=== PATIENT | male | born 1965 | race Caucasian/White ===

== ENCOUNTER 2017-04-27 09:31 | Observation (INO) | payer SELFPAY ==
[2017-04-27] VITALS (9 sets, daily range): BP systolic 106–188; BP diastolic 62–110; PULSE 58–112; RESP 16–20; TEMP 98.1–98.4; O2SAT 97–100
[~2017-04-27] VITALS: Ht 185.4 cm; Wt 72.0 kg
[~2017-04-27 09:31] MED LIST: CHLO10 PO; KPHOSO PO; ZANT150T2 PO
[2017-04-27] MEDS ORDERED: SODIUM CHLORIDE 0.9% FLUSH 10 ML FLUSH IVF PRN (10:15)
--- NOTE | 2017-04-27 10:20 | PD ---
HPI Chief Complaint: General Weakness Time Seen by Provider: 10:19 Travel History International Travel<30 days: No Contact w/Intl Traveler<30days: No Traveled to known affect area: No History of Present Illness HPI 51-year-old male patient with history of no significant past medical issues, comes in with several days' history of dizziness, left-sided chest pressures which she currently rates it as 6 out of 10, shortness of breath, tingling in his left arm and up his left neck. He states it worsens with exertion. He states that for last few days he has been taking it easy because of discomfort. Modifying Factors: None Associated Signs & Symptoms: Dizziness, chest discomfort, shortness of breath Risk Factors: None PFSH Past Medical History Medical History: Denies Significant Hx Past Surgical History Other Surgery: Yes (nose) Social History Alcohol Use: No Tobacco Use: Yes (1 ppd) Substance Use: Yes Allergies-Medications (Allergen,Severity, Reaction): Coded Allergies: No Known Allergies (Unverified Adverse Reaction, Unknown, 04/27/17) Reported Meds & Prescriptions Reported Meds & Active Scripts Active No Active Prescriptions or Reported Medications Review of Systems Except as stated in HPI: all other systems reviewed are Neg Physical Exam Narrative GENERAL: Well-developed middle age white male patient currently in mild distress. Awake and oriented 3. SKIN: Focused skin assessment warm/dry. HEAD: Atraumatic. Normocephalic. EYES: Pupils equal and round. No scleral icterus. No injection or drainage. ENT: No nasal bleeding or discharge. Mucous membranes pink and moist. NECK: Trachea midline. No JVD. CARDIOVASCULAR: Regular rate and rhythm. No murmur appreciated. Pulses are present and equal bilaterally. RESPIRATORY: No accessory muscle use. Clear to auscultation. Breath sounds equal bilaterally. GASTROINTESTINAL: Abdomen soft, non-tender, nondistended. Hepatic and splenic margins not palpable. MUSCULOSKELETAL: No obvious deformities. No clubbing. No cyanosis. No edema. NEUROLOGICAL: Awake and alert. No obvious cranial nerve deficits. Motor grossly within normal limits. Normal speech. PSYCHIATRIC: Appropriate mood and affect; insight and judgment normal. Data Data Last Documented VS Vital Signs Date Time Temp Pulse Resp B/P (MAP) Pulse Ox O2 Delivery O2 Flow Rate FiO2 04/27/17 09:58 90 18 188/107 (134) 100 Room Air 04/27/17 09:35 98.4 Orders Orders Electrocardiogram (04/27/17 10:13) Complete Blood Count With Diff (04/27/17 10:13) Comprehensive Metabolic Panel (04/27/17 10:13) Magnesium (Mg) (04/27/17 10:13) Ckmb (Isoenzyme) Profile (04/27/17 10:13) Troponin I (04/27/17 10:13) Urinalysis - C+S If Indicated (04/27/17 10:13) Chest, Single Ap (04/27/17 10:13) Ct Brain W/O Iv Contrast(Rout) (04/27/17 10:13) Ecg Monitoring (04/27/17 10:13) Iv Access Insert/Monitor (04/27/17 10:13) Oximetry (04/27/17 10:13) Sodium Chloride 0.9% Flush (Ns Flush) (04/27/17 10:15) Aspirin (Aspirin) (04/27/17 12:30) Nitroglycerin 2% Oint (Nitroglycerin 2% (04/27/17 14:00) Admit Order (Ed Use Only) (04/27/17 12:19) Labs Laboratory Tests Test 04/27/17 10:15 White Blood Count 7.4 TH/MM3 Red Blood Count 5.30 MIL/MM3 Hemoglobin 17.2 GM/DL Hematocrit 50.0 % Mean Corpuscular Volume 94.3 FL Mean Corpuscular Hemoglobin 32.4 PG Mean Corpuscular Hemoglobin Concent 34.4 % Red Cell Distribution Width 13.9 % Platelet Count 244 TH/MM3 Mean Platelet Volume 8.6 FL Neutrophils (%) (Auto) 71.2 % Lymphocytes (%) (Auto) 21.9 % Monocytes (%) (Auto) 5.3 % Eosinophils (%) (Auto) 0.9 % Basophils (%) (Auto) 0.7 % Neutrophils # (Auto) 5.2 TH/MM3 Lymphocytes # (Auto) 1.6 TH/MM3 Monocytes # (Auto) 0.4 TH/MM3 Eosinophils # (Auto) 0.1 TH/MM3 Basophils # (Auto) 0.1 TH/MM3 CBC Comment DIFF FINAL Differential Comment Blood Urea Nitrogen 11 MG/DL Creatinine 1.15 MG/DL Random Glucose 96 MG/DL Total Protein 8.2 GM/DL Albumin 4.2 GM/DL Calcium Level 9.6 MG/DL Magnesium Level 2.3 MG/DL Alkaline Phosphatase 102 U/L Aspartate Amino Transf (AST/SGOT) 11 U/L Alanine Aminotransferase (ALT/SGPT) 14 U/L Total Bilirubin 0.4 MG/DL Sodium Level 136 MEQ/L Potassium Level 4.4 MEQ/L Chloride Level 102 MEQ/L Carbon Dioxide Level 26.4 MEQ/L Anion Gap 8 MEQ/L Estimat Glomerular Filtration Rate 67 ML/MIN Total Creatine Kinase 77 U/L Troponin I LESS THAN 0.02 NG/ML MDM Medical Decision Making Medical Screen Exam Complete: Yes Emergency Medical Condition: Yes Medical Record Reviewed: Yes Interpretation(s) EKG shows NSR, no ST elevation or depression, and no arrhythmias. No significant T-wave inversions. Laboratory Tests Test 04/27/17 10:15 Hemoglobin 17.2 GM/DL (13.0-17.0) Neutrophils (%) (Auto) 71.2 % (16.0-70.0) Aspartate Amino Transf (AST/SGOT) 11 U/L (15-37) Estimat Glomerular Filtration Rate 67 ML/MIN (>89) Troponin I LESS THAN 0.02 NG/ML Last [address] 04/27/17 1013 Signed Impressions: Service Date/Time: Thursday, April 27, 2017 11:43 - CONCLUSION: Normal examination. Arsalan Umaña MD Chest X-Ray 04/27/17 1013 Signed Impressions: Service Date/Time: Thursday, April 27, 2017 10:25 - CONCLUSION: Hyperinflation. Lungs are otherwise clear. Neptali Baugh MD Differential Diagnosis Dizziness, chest discomfort, shortness of breath, left arm paresthesias: Anxiety attack versus metabolic issues versus hypertensive urgency versus TIA/ CVA versus ACS Narrative Course EKG, lab work, cardiac enzymes and chest x-ray were unremarkable. CAT scan was done to rule out acute intracranial processes, did not show any signs of acute processes. He has no focal neurological deficits and I do not think that this is a CVA. However, I am concerned about chest discomfort and my plan would be to admit the patient to chest pain center for further evaluation. Diagnosis Primary Impression: Chest pain Admitting Information Admitting Physician Requests: Admit Scripts No Active Prescriptions or Reported Meds Ann Jolley MD Apr 27, 2017 10:20
[2017-04-27 10:36] LABS: AUTOMATED NEUTROPHIL # 5.2 TH/MM3 (1.8-7.7); BASOPHIL # 0.1 TH/MM3 (0-0.2); BASOPHIL % 0.7 % (0.0-2.0); EOSINOPHIL # 0.1 TH/MM3 (0-0.4); EOSINOPHIL % 0.9 % (0.0-4.0); HEMO FLAGS DIFF FINAL; LYMPH % 21.9 % (9.0-44.0); LYMPHOCYTE # 1.6 TH/MM3 (1.0-4.8); MEAN CELL VOLUME 94.3 FL (80.0-100.0); MEAN CORPUSCULAR HEMOGLOBIN 32.4 PG (27.0-34.0); MEAN CORPUSCULAR HGB CONC 34.4 % (32.0-36.0); MONO % 5.3 % (0.0-8.0); NEUT % 71.2 % (16.0-70.0); PLATELET COUNT 244 TH/MM3 (150-450); RED CELL DISTRIBUTION WIDTH 13.9 % (11.6-17.2); WHITE BLOOD COUNT 7.4 TH/MM3 (4.0-11.0)
--- NOTE | 2017-04-27 11:02 | RADRPT ---
EXAM DATE/TIME: 04/27/2017 10:25 [facility] COMPARISON: No previous studies available for comparison. INDICATIONS : Shortness of breath. MEDICAL HISTORY : None. SURGICAL HISTORY : None. ENCOUNTER: Initial ACUITY: 3 days PAIN SCORE: 0/10 LOCATION: Bilateral chest FINDINGS: A single view of the chest demonstrates the lungs to be symmetrically, hyper aerated without evidence of mass, infiltrate or effusion. Well-circumscribed nodular density projecting over the anterior ri ght sixth rib is characteristic of a normal nipple shadow. The cardiomediastinal contours are unremar kable. Osseous structures are intact with a extra scoliosis of the thoracolumbar spine and associate d mild degenerative changes. CONCLUSION: Hyperinflation. Lungs are otherwise clear. Neptali Baugh MD on April 27, 2017 at 10:58 Board Certified Radiologist. This report was verified electronically.
[2017-04-27 11:15] LABS: ALT (GPT) 14 U/L (12-78); ANION GAP 8 MEQ/L (5-15); AST (GOT) 11 U/L (15-37); BICARBONATE 26.4 MEQ/L (21.0-32.0); BLOOD UREA NITROGEN 11 MG/DL (7-18); CHLORIDE 102 MEQ/L (98-107); GLOMERULAR FILTRATION RATE 67 ML/MIN (>89); MAGNESIUM 2.3 MG/DL (1.5-2.5); POTASSIUM 4.4 MEQ/L (3.5-5.1); SODIUM (NA) 136 MEQ/L (136-145)
[2017-04-27 11:20] LABS: ALKALINE PHOSPHATASE 102 U/L (45-117); TOTAL BILIRUBIN ADULT 0.4 MG/DL (0.2-1.0)
[2017-04-27 11:21] LABS: CREATINE KINASE 77 U/L (39-308)
--- NOTE | 2017-04-27 12:09 | RADRPT ---
EXAM DATE/TIME: 04/27/2017 11:43 [facility] COMPARISON: No previous studies available for comparison. INDICATIONS : Weakness and lightheaded for 6 days RADIATION DOSE: 56.35 CTDIvol (mGy) MEDICAL HISTORY : None SURGICAL HISTORY : None. ENCOUNTER: Initial ACUITY: 4 - 6 days PAIN SCALE: 0/10 LOCATION: cranial TECHNIQUE: Multiple contiguous axial images were obtained of the head. Using automated exposure control and adj ustment of the mA and/or kV according to patient size, radiation dose was kept as low as reasonably a chievable to obtain optimal diagnostic quality images. DICOM format image data is available electro nically for review and comparison. FINDINGS: CEREBRUM: The ventricles are normal for age. No evidence of midline shift, mass lesion, hemorrhage or acute in farction. No extra-axial fluid collections are seen. POSTERIOR FOSSA: The cerebellum and brainstem are intact. The 4th ventricle is midline. The cerebellopontine angle i s unremarkable. EXTRACRANIAL: The visualized portion of the orbits is intact. SKULL: The calvaria is intact. No evidence of skull fracture. CONCLUSION: Normal examination. Arsalan Umaña MD on April 27, 2017 at 12:07 Board Certified Radiologist. This report was verified electronically.
[2017-04-27] MEDS ORDERED: ASPIRIN 325 MG TAB PO ONE (12:30)
[2017-04-27 12:50] LABS: BLOOD, URINE NEG (NEG); GLUCOSE,URINE NEG (NEG); KETONE, URINE NEG (NEG); NITRITE,URINE NEG (NEG); URINE COLOR LIGHT-YELLOW (YELLW/STRAW)
[2017-04-27 12:58] LABS: COMMENT (UR) CULT NOT INDICATED; CULTURE IF INDICATED CULT NOT INDICATED
[2017-04-27] MEDS ORDERED: ACETAMINOPHEN/HYDROcodone 325 MG/7.5 MG TAB PO PRN (13:00)
[2017-04-27] MEDS ORDERED: ALPRAZolam 0.25 MG TAB PO PRN (13:00)
[2017-04-27] MEDS ORDERED: RESP: ALBUTEROL 2.5 MG/IPRATROPIUM 0.5 MG NEB (PRN) INH (13:00)
[2017-04-27] MEDS ORDERED: cloNIDine HCL 0.1 MG TAB PO PRN (13:00)
[2017-04-27] MEDS ORDERED: ONDANSETRON HCL 4 MG/2 ML VIAL IV PUSH PRN (13:00)
[2017-04-27] MEDS ORDERED: ACETAMINOPHEN 500 MG CPLT PO PRN (13:00)
--- NOTE | 2017-04-27 13:36 | HHI.HP ---
HPI Primary Care Physician No Primary Care Physician Chief Complaint Chest pain History of Present Illness This is a 51-year-old male that presents to ED with a complaint of chest pain. Patient states symptoms began . They've been present constantly for 6 days. He points to left upper chest show where the discomfort is present. Times will radiate down left arm. The discomfort has been constant however it waxes and wanes. It does seem to be worsened with activity which for the most part is at work. 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 Patient also has been getting lightheaded while he was doing work. This is also the same time that the discomfort in his chest has worsening. Denies shortness of breath, nausea, or diaphoresis with the symptoms. States he's never had his heart evaluated before. Patient does smoke cigarettes. Denies history of hypertension and hyperlipidemia. There is family history of CAD with both parents needing a bypass. Review of Systems General: Patient denies fevers, chills recent, and recent travel HEENT: Patient denies headache, sore throat, difficulty swallowing. Cardiovascular: Has the chest discomfort as mentioned above. Denies sensation of heart beating rapidly or irregularly. No syncope. Denies diaphoresis. Respiratory: Denies shortness of breath or inspirational chest discomfort. Denies coughing wheezing or hemoptysis. GI: Patient denies nausea, vomiting, diarrhea, abdominal pain, bloody stools. Musculoskeletal: Patient denies joint pain or edema. Denies calf pain or edema. Neurovascular: Patient denies numbness, tingling, weakness in extremities. Denies headache. Endocrine: Denies polyuria and polydipsia. Hematologic: Denies easy bruising. Skin: Denies rash or itching. Past Family Social History Allergies: Coded Allergies: No Known Allergies (Unverified Adverse Reaction, Unknown, 04/27/17) Past Medical History Tobacco abuse. 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 States he's had no alcohol for 2 years. Denies hypertension, hyperlipidemia, diabetes, and known CAD. Past Surgical History Left ankle. Nasal surgery secondary to fracture. Reported Medications Reported Meds & Active Scripts Active No Active Prescriptions or Reported Medications Active Ordered Medications Current Medications Medications (Trade) Dose Ordered Sig/Efrain Route Start Time Stop Time Status Last Admin (NS Flush) 2 ml UNSCH PRN IVF 04/27/17 10:15 (Nitroglycerin 2% Oint) 1 inch Q8HR TOPICAL 04/27/17 14:00 (Tylenol) 500 mg Q4H PRN PO 04/27/17 13:00 UNV ([place] 7.5-325 Mg) 1 tab Q4H PRN PO 04/27/17 13:00 UNV (Zofran Inj) 4 mg Q6H PRN IV PUSH 04/27/17 13:00 UNV (Protonix) 40 mg DAILY PO 04/27/17 13:00 UNV (Aspirin) 325 mg DAILY PO 04/28/17 09:00 UNV (Xanax) 0.25 mg Q8H PRN PO 04/27/17 13:00 UNV (Duoneb Neb) 1 ampule Q4HR NEB PRN INH 04/27/17 13:00 UNV (Catapres) 0.1 mg Q4H PRN PO 04/27/17 13:00 UNV (Prinivil) 10 mg DAILY PO 04/27/17 13:00 UNV Family History His mother needed a bypass at age 74. His father needed a bypass at age 56. Social History Smokes one pack of cigarettes daily for 35 years. Occasional marijuana use. States he is not alcoholic but has been sober for 2 years. Physical Exam Vital Signs Vital Signs Date Time Temp Pulse Resp B/P (MAP) Pulse Ox O2 Delivery O2 Flow Rate FiO2 04/27/17 13:01 100 21 04/27/17 12:35 82 18 161/110 (127) 98 Room Air 04/27/17 09:58 90 18 188/107 (134) 100 Room Air 04/27/17 09:35 98.4 112 16 163/105 (124) 99 Physical Exam GENERAL: This is a well-nourished, well-developed patient, in no apparent distress. Patient speaks in clear complete sentences. Patient is pleasant. HEENT: Head is atraumatic and normocephalic. Neck is supple without lymphadenopathy and trachea is midline. No JVD or carotid bruits. CARDIOVASCULAR: Regular rate and rhythm without murmurs, gallops, or rubs. RESPIRATORY: Clear to auscultation. Breath sounds equal bilaterally. No wheezes , rales, or rhonchi. Chest wall is nontender. No use of accessory muscles. GASTROINTESTINAL: Abdomen is nontender, nondistended. Abdomen soft. No obvious pulsatile mass or bruit. No CVA tenderness. Strong femoral pulses bilaterally. Normal bowel sounds in all quadrants. MUSCULOSKELETAL: Patient is moving upper and lower extremities freely. No calf tenderness or edema, no Homans sign. Strong pulses in upper and lower extremities. NEUROLOGICAL: Patient is alert and oriented. Cranial nerves 2-12 are grossly intact. No focal deficits and speech is clear. SKIN: No rash and turgor is normal. Laboratory Laboratory Tests Test 04/27/17 10:15 04/27/17 10:40 White Blood Count 7.4 Red Blood Count 5.30 Hemoglobin 17.2 Hematocrit 50.0 Mean Corpuscular Volume 94.3 Mean Corpuscular Hemoglobin 32.4 Mean Corpuscular Hemoglobin Concent 34.4 Red Cell Distribution Width 13.9 Platelet Count 244 Mean Platelet Volume 8.6 Neutrophils (%) (Auto) 71.2 Lymphocytes (%) (Auto) 21.9 Monocytes (%) (Auto) 5.3 Eosinophils (%) (Auto) 0.9 Basophils (%) (Auto) 0.7 Neutrophils # (Auto) 5.2 Lymphocytes # (Auto) 1.6 Monocytes # (Auto) 0.4 Eosinophils # (Auto) 0.1 Basophils # (Auto) 0.1 CBC Comment DIFF FINAL Differential Comment Blood Urea Nitrogen 11 Creatinine 1.15 Random Glucose 96 Total Protein 8.2 Albumin 4.2 Calcium Level 9.6 Magnesium Level 2.3 Alkaline Phosphatase 102 Aspartate Amino Transf (AST/SGOT) 11 Alanine Aminotransferase (ALT/SGPT) 14 Total Bilirubin 0.4 Sodium Level 136 Potassium Level 4.4 Chloride Level 102 Carbon Dioxide Level 26.4 Anion Gap 8 Estimat Glomerular Filtration Rate 67 Total Creatine Kinase 77 Troponin I LESS THAN 0.02 Urine Color LIGHT-YELLOW Urine Turbidity CLEAR Urine pH 7.0 Urine Specific [place] 1.006 Urine Protein NEG Urine Glucose (UA) NEG Urine Ketones NEG Urine Occult Blood NEG Urine Nitrite NEG Urine Bilirubin NEG Urine Urobilinogen LESS THAN 2.0 Urine Leukocyte Esterase NEG Urine RBC LESS THAN 1 Urine WBC LESS THAN 1 Microscopic Urinalysis Comment CULT NOT INDICATED Result Diagram: 04/27/17 1015 04/27/17 1015 Imaging Last [address] 04/27/17 1013 Signed Impressions: Service Date/Time: Thursday, April 27, 2017 11:43 - CONCLUSION: Normal examination. Arsalan Umaña MD Chest X-Ray 04/27/17 1013 Signed Impressions: Service Date/Time: Thursday, April 27, 2017 10:25 - CONCLUSION: Hyperinflation. Lungs are otherwise clear. Neptali Baugh MD Course Initial EKG is sinus rhythm rate of [address] segment depressions or elevations. Caprini VTE Risk Assessment Caprini VTE Risk Assessment: No/Low Risk (score <= 1) Caprini Risk Assessment Model Point Value = 1 Point Value = 2 Point Value = 3 Point Value = 5 Age 41-60 Minor surgery BMI > 25 kg/m2 Swollen legs Varicose veins or History of unexplained or recurrent spontaneous Oral contraceptives or hormone replacement Sepsis (< 1 month) Serious lung disease, including pneumonia (< 1 month) Abnormal pulmonary function Acute myocardial infarction Congestive heart failure (< 1 month) History of inflammatory bowel disease Medical patient at bed rest Age 61-74 Arthroscopic surgery Major open surgery (> 45 min) Laparoscopic surgery (> 45 min) Malignancy Confined to bed (> 72 hours) Immobilizing plaster cast Central venous access Age >= 75 History of VTE Family history of VTE Factor V Leiden Prothrombin [id number] Lupus anticoagulant Anticardiolipin antibodies Elevated serum homocysteine Heparin-induced thrombocytopenia Other congenital or acquired thrombophilia Stroke (< 1 month) Elective arthroplasty Hip, pelvis, or leg fracture Acute spinal cord injury (< 1 month) Prophylaxis Regimen Total Risk Factor Score Risk Level Prophylaxis Regimen 0-1 Low Early ambulation 2 Moderate Order ONE of the following: *Sequential Compression Device (SCD) *Heparin 5000 units SQ BID 3-4 Higher Order ONE of the following medications: *Heparin 5000 units SQ TID *Enoxaparin/Lovenox 40 mg SQ daily (WT < 150 kg, CrCl > 30 mL/min) *Enoxaparin/Lovenox 30 mg SQ daily (WT < 150 kg, CrCl > 10-29 mL/min) *Enoxaparin/Lovenox 30 mg SQ BID (WT < 150 kg, CrCl > 30 mL/min) AND/OR *Sequential Compression Device (SCD) 5 or more Highest Order ONE of the following medications: *Heparin 5000 units SQ TID (Preferred with Epidurals) *Enoxaparin/Lovenox 40 mg SQ daily (WT < 150 kg, CrCl > 30 mL/min) *Enoxaparin/Lovenox 30 mg SQ daily (WT < 150 kg, CrCl > 10-29 mL/min) *Enoxaparin/Lovenox 30 mg SQ BID (WT < 150 kg, CrCl > 30 mL/min) AND *Sequential Compression Device (SCD) Assessment and Plan Assessment and Plan * Chest pain: Patient will continue to have serial cardiac enzymes and EKGs for ruling out purposes. He will be seen by Dr. Darrell Mott of cardiology in the chest pain center and at that time further plan will be determined. Likely stress testing in the morning and patient believes he would be walk on a treadmill. If his workup is nonischemic U be discharged home with instructions to follow-up with PCP and to quit smoking. His blood pressure was elevated. We 'll give a dose lisinopril and continue to monitor. * Tobacco Abuse: Patient has been counseled on importance of smoking cessation. Patient is stable at this time. He is agreeable to this plan. Patient return to ED for interval issues. Vadim Perez Apr 27, 2017 13:36
[2017-04-27] MEDS: LISINOPRIL 10 MG TAB PO SCH (13:52)
[2017-04-27] MEDS: PANTOPRAZOLE SOD 40 MG DELAYED RELEASE TAB PO SCH (13:52)
[2017-04-27] MEDS ORDERED: NITROGLYCERIN 2% OINT 1 GM PACKET TOPICAL SCH (14:00)
[2017-04-27 14:59] LABS: CREATINE KINASE 60 U/L (39-308)
[2017-04-27] MEDS ORDERED: SODIUM CHLOR 0.9% 1000 ML INJ 1,000 ML IV SCH (15:37)
--- NOTE | 2017-04-27 16:08 | EKG ---
Date Performed: 04/27/2017 Time Performed: 13:42:19 PTAGE: 51 years EKG: Sinus rhythm NORMAL ECG INTERPRETATION BASED ON A DEFAULT AGE OF 40 YEARS PREVIOUS TRACING : 04/27/2017 11.24 Since previous tracing, no significant change noted DOCTOR: Darrell Mott Interpretating Date/Time 04/27/2017 16:06:25
[2017-04-27 17:21] LABS: CREATINE KINASE 54 U/L (39-308)
[2017-04-28 00:08] VITALS: BP 102/61; PULSE 73; RESP 18; TEMP 97.9; O2SAT 98
[2017-04-28 04:33] VITALS: PULSE 67
[2017-04-28 07:15] VITALS: BP 102/66; PULSE 70; PULSE 76; RESP 16; TEMP 97.7; O2SAT 97
[2017-04-28] MEDS: LISINOPRIL 10 MG TAB PO SCH (08:43)
[2017-04-28] MEDS: PANTOPRAZOLE SOD 40 MG DELAYED RELEASE TAB PO SCH (08:43)
[2017-04-28] MEDS ORDERED: ASPIRIN 325 MG TAB PO SCH (09:00)
--- NOTE | 2017-04-28 10:23 | PD.CARD.PN ---
Subjective Subjective Remarks No complaints overnight. Objective Medications Current Medications Medications (Trade) Dose Ordered Sig/Efrain Route Start Time Stop Time Status Last Admin (NS Flush) 2 ml UNSCH PRN IVF 04/27/17 10:15 04/28/17 08:48 (Tylenol) 500 mg Q4H PRN PO 04/27/17 13:00 ([place] 7.5-325 Mg) 1 tab Q4H PRN PO 04/27/17 13:00 (Zofran Inj) 4 mg Q6H PRN IV PUSH 04/27/17 13:00 (Protonix) 40 mg DAILY PO 04/27/17 13:00 04/28/17 08:43 (Aspirin) 325 mg DAILY PO 04/28/17 09:00 04/28/17 08:43 (Xanax) 0.25 mg Q8H PRN PO 04/27/17 13:00 (Duoneb Neb) 1 ampule Q4HR NEB PRN INH 04/27/17 13:00 (Catapres) 0.1 mg Q4H PRN PO 04/27/17 13:00 (Prinivil) 10 mg DAILY PO 04/27/17 14:00 04/28/17 08:43 Vital Signs / I&O Vital Signs Date Time Temp Pulse Resp B/P (MAP) Pulse Ox O2 Delivery O2 Flow Rate FiO2 04/28/17 07:15 97.7 70 16 102/66 (78) 97 04/28/17 04:35 21 04/28/17 04:33 67 04/28/17 00:08 97.9 73 18 102/61 (75) 98 04/27/17 23:53 58 04/27/17 20:51 98.1 72 20 106/62 (77) 97 04/27/17 20:05 87 04/27/17 14:47 98.1 73 18 128/78 (95) 97 04/27/17 14:09 04/27/17 13:53 77 20 133/89 (104) 99 Room Air 04/27/17 13:01 100 21 04/27/17 12:35 82 18 161/110 (127) 98 Room Air Physical Exam GENERAL: Alert WN, WD, NAD, male who appears older than stated age. HEAD: NC, AT CV: RRR, without murmur, rub, gallop, no JVD, S1-S2 no S3-S4. Chest wall pain not reproduced with palpation. RESP: Clear lungs throughout bilateral, no crackles, wheeze, rhonchi, symmetrical chest rise, nonlabored, able to speak in full sentences MS: Normal tone 4 extremities, no obvious deformities, full range of motion NEURO: CN II through CN XII grossly intact, motor strength 5/5, left lateral neck pain not reproduced with palpation. PSYCH: A+O 3 Laboratory Laboratory Tests Test 04/27/17 10:15 04/27/17 10:40 04/27/17 13:40 04/27/17 16:22 White Blood Count 7.4 TH/MM3 Red Blood Count 5.30 MIL/MM3 Hemoglobin 17.2 GM/DL Hematocrit 50.0 % Mean Corpuscular Volume 94.3 FL Mean Corpuscular Hemoglobin 32.4 PG Mean Corpuscular Hemoglobin Concent 34.4 % Red Cell Distribution Width 13.9 % Platelet Count 244 TH/MM3 Mean Platelet Volume 8.6 FL Neutrophils (%) (Auto) 71.2 % Lymphocytes (%) (Auto) 21.9 % Monocytes (%) (Auto) 5.3 % Eosinophils (%) (Auto) 0.9 % Basophils (%) (Auto) 0.7 % Neutrophils # (Auto) 5.2 TH/MM3 Lymphocytes # (Auto) 1.6 TH/MM3 Monocytes # (Auto) 0.4 TH/MM3 Eosinophils # (Auto) 0.1 TH/MM3 Basophils # (Auto) 0.1 TH/MM3 CBC Comment DIFF FINAL Differential Comment Blood Urea Nitrogen 11 MG/DL Creatinine 1.15 MG/DL Random Glucose 96 MG/DL Total Protein 8.2 GM/DL Albumin 4.2 GM/DL Calcium Level 9.6 MG/DL Magnesium Level 2.3 MG/DL Alkaline Phosphatase 102 U/L Aspartate Amino Transf (AST/SGOT) 11 U/L Alanine Aminotransferase (ALT/SGPT) 14 U/L Total Bilirubin 0.4 MG/DL Sodium Level 136 MEQ/L Potassium Level 4.4 MEQ/L Chloride Level 102 MEQ/L Carbon Dioxide Level 26.4 MEQ/L Anion Gap 8 MEQ/L Estimat Glomerular Filtration Rate 67 ML/MIN Total Creatine Kinase 77 U/L 60 U/L 54 U/L Troponin I LESS THAN 0.02 NG/ML LESS THAN 0.02 NG/ML LESS THAN 0.02 NG/ML Urine Color LIGHT-YELLOW Urine Turbidity CLEAR Urine pH 7.0 Urine Specific [place] 1.006 Urine Protein NEG mg/dL Urine Glucose (UA) NEG mg/dL Urine Ketones NEG mg/dL Urine Occult Blood NEG Urine Nitrite NEG Urine Bilirubin NEG Urine Urobilinogen LESS THAN 2.0 MG/DL Urine Leukocyte Esterase NEG Urine RBC LESS THAN 1 /hpf Urine WBC LESS THAN 1 /hpf Microscopic Urinalysis Comment CULT NOT INDICATED Urine Opiates Screen NEG Urine Barbiturates Screen NEG Urine Amphetamines Screen NEG Urine Benzodiazepines Screen NEG Urine Cocaine Screen NEG Urine Cannabinoids Screen POS Lipase 110 U/L Imaging Last [address] 04/27/17 1013 Signed Impressions: Service Date/Time: Thursday, April 27, 2017 11:43 - CONCLUSION: Normal examination. Arsalan Umaña MD Chest X-Ray 04/27/17 1013 Signed Impressions: Service Date/Time: Thursday, April 27, 2017 10:25 - CONCLUSION: Hyperinflation. Lungs are otherwise clear. Neptali Baugh MD Assessment and Plan Assessment and Plan #1 Atypical chest pain-proceeded with exercise stress testing. Dr. Krueger reviewed results and agrees cardiac exercise testing unremarkable with no indication of ischemia. Upon entering room to notify patient of cardiac testing finding, patient immediately began yelling and became angry stating "no one is listening to me and I do not want to be discharged, I am afraid I will have a stroke." Patient continued to raise voice and I was unable to calm him down despite multiple attempts. Made him aware we are here to help him, therefore would like to ask further questions to give idea of why he is having left side neck pain and to discuss concerns over discharge. All multiple communication attempts failed. Continued to raise voice and uncooperative further discussing his current symptoms. Kept repeating "no one listening and no one has done anything for me." Every attempt to discuss testing completed disregarding by patient. Unable to give any reassurance to patient at this time. Patient made aware yelling and being uncooperative is not tolerated, therefore will give him time to calm down before any further discussion continues. Will return to speak with patient with my current attending physician, after patient calms down. #2 Tobacco use-strongly encouraged and stressed importance of tobacco cessation. Instructed to quit smoking. Dori Keyes Apr 28, 2017 10:23
--- NOTE | 2017-04-28 10:33 | EKG ---
Date Performed: 04/27/2017 Time Performed: 11:24:39 PTAGE: 51 years EKG: Sinus rhythm NORMAL ECG PREVIOUS TRACING : 01/03/2015 19.03 Compared to prior tracing no significant change DOCTOR: Kelli Najera Interpretating Date/Time 04/28/2017 10:33:13
--- NOTE | 2017-04-28 10:52 | TR ---
Date Performed: 04/28/2017 Time Performed: 09:20:06 DOCTOR: Maikol Krueger DRUG LIST: CLINICAL HISTORY: REASON FOR TEST: REASON FOR ENDING: OBSERVATION: CONCLUSION: Ramesh protocol completed. Stopped sec to exceeding target heart rate and difficulty walking due to past left ankle fracture. Maximum ZE=539 Target HR Achieved=93.0% Maximum TV=138/74 To hasmukh Exercise Time=3:42. No reprod chest pain. No st t segment changes to sugg ischemia. No ectopy. Go od exercise tolerance, exercise limited due to left ankle. Normal bp response. Recovery quick and unr emarkable. COMMENTS: Conclusion: Normal treadmill exercise. No evidence of ischemia.
[2017-04-28] MEDS ORDERED: KETOROLAC TROMETHAMINE 30 MG/ML (IVP) VIAL IV PUSH ONE (11:00)
[2017-04-28 12:17] VITALS: BP 103/71; PULSE 81; RESP 18; TEMP 97.8; O2SAT 98
[2017-04-28] MEDS ORDERED: MEDR4PAK PO (13:47)
--- NOTE | 2017-04-28 13:49 | EKG ---
Date Performed: 04/27/2017 Time Performed: 16:30:58 PTAGE: 51 years EKG: Sinus rhythm NORMAL ECG PREVIOUS TRACING : 04/27/2017 13.42 Since previous tracing, no significant change noted DOCTOR: Maikol Krueger Interpretating Date/Time 04/28/2017 13:47:59
[2017-04-28 15:12] VITALS: BP 111/76; PULSE 99; RESP 16; TEMP 97.8; O2SAT 98
--- NOTE | 2017-04-28 15:35 | HHI.DCPOC ---
Discharge Care Plan Diagnosis: (1) Tobacco abuse (2) Atypical chest pain (3) Radiculopathy affecting upper extremity Goals to Promote Your Health * To prevent worsening of your condition and complications * To maintain your health at the optimal level Directions to Meet Your Goals Take your medications as prescribed Follow your dietary instruction Follow activity as directed Keep your appointments as scheduled Take your immunizations and boosters as scheduled If your symptoms worsen call your PCP, if no PCP go to Urgent Care Center or Emergency Room Smoking is Dangerous to Your Health. Avoid second hand smoke Call the 24-hour hour crisis hotline for domestic abuse at Dori Keyes Apr 28, 2017 15:35
--- NOTE | 2017-04-28 15:50 | RADRPT ---
EXAM DATE/TIME: 04/28/2017 13:39 [facility] COMPARISON: No previous studies available for comparison. INDICATIONS : Left side neck pain. MEDICAL HISTORY : None. SURGICAL HISTORY : None. ENCOUNTER: Subsequent ACUITY: 1 week PAIN SCORE: 6/10 LOCATION: Left neck FINDINGS: Two projection examination was performed. There is normal alignment and curvature of the vertebral b odies down to the level of C7. No evidence of fracture or subluxation. Vertebral body height is av ntained. The disc spaces are maintained. The prevertebral soft tissues are of normal thickness. Th e atlanto-axial articulation is intact. Dense atherosclerotic calcification in the expected location of the carotid bifurcations bilaterally. CONCLUSION: 1. No acute osseous injury or significant degenerative/listhesis. 2. Dense atherosclerotic calcification in the expected location of the carotid bifurcations bilateral ly. Neptali Baugh MD on April 28, 2017 at 15:47 Board Certified Radiologist. This report was verified electronically.
--- NOTE | 2017-04-29 07:21 | HHI.DS ---
Discharge Summary Admission Date Apr 27, 2017 at 12:21 Discharge Date: Apr 28, 2017 Admitting Diagnosis chest pain Procedures Last Impressions Cervical Spine X-Ray 04/28/17 0000 Signed Impressions: Service Date/Time: April 13:39 - CONCLUSION: 1. No acute osseous injury or significant degenerative/listhesis. 2. Dense atherosclerotic calcification in the expected location of the carotid bifurcations bilaterally. Neptali Baugh MD Head CT 04/27/17 1013 Signed Impressions: Service Date/Time: Thursday, April 27, 2017 11:43 - CONCLUSION: Normal examination. Arsalan Umaña MD Chest X-Ray 04/27/17 1013 Signed Impressions: Service Date/Time: Thursday, April 27, 2017 10:25 - CONCLUSION: Hyperinflation. Lungs are otherwise clear. Neptali Baugh MD Brief History 51-year-old male presented emergency room for constant left anterior chest pain with radiation to left-sided neck, left shoulder, and left arm. Admitted to chest pain center. Ruled out with 3 sets of EKGs and cardiac enzymes. Completed an chemical stress test. Upon discharge patient presents concerned over discharge due to constant pain. Cervical x-ray ordered and completed. Cervical xray unremarkable. Bilateral carotid calcifications at bifurcation. Discussed follow up with PCP. Information give at discharged to follow up with [facility]. CBC/BMP: 04/27/17 1015 04/27/17 1015 Significant Findings Laboratory Tests Test 04/27/17 10:15 04/27/17 10:40 04/27/17 13:40 04/27/17 16:22 Hemoglobin 17.2 GM/DL (13.0-17.0) Neutrophils (%) (Auto) 71.2 % (16.0-70.0) Aspartate Amino Transf (AST/SGOT) 11 U/L (15-37) Estimat Glomerular Filtration Rate 67 ML/MIN (>89) Troponin I LESS THAN 0.02 NG/ML LESS THAN 0.02 NG/ML LESS THAN 0.02 NG/ML Urine Cannabinoids Screen POS (NEG) Pt Condition on Discharge: Good Discharge Disposition: Discharge Home Discharge Instructions DIET: Follow Instructions for: Heart Healthy Diet Activities you can perform: Regular-No Restrictions Dori Keyes Apr 29, 2017 07:21
== END 2017-04-28 18:31 | disposition home or self-care (01) ==
LOC: NEPE 09:31 → NEDA 12:21 → NEPFCDU 14:00
PROVIDERS: ADMIT Internal Medicine Cardiovascular Disease; ATTEND Internal Medicine Cardiovascular Disease
DX: R07.89 Other chest pain (principal); R53.1 Weakness; R42 Dizziness and giddiness; R06.02 Shortness of breath; F17.210 Nicotine dependence, cigarettes, uncomplicated; F12.90 Cannabis use, unspecified, uncomplicated; R03.0 Elevated blood-pressure reading, without diagnosis of hypertension; Z79.82 Long term (current) use of aspirin; Z82.49 Family history of ischemic heart disease and other diseases of the circulatory system; Z79.899 Other long term (current) drug therapy
CPT/HCPCS: 70450; 71010; 72040; 80053; 80307; 81001; 82550; 83690; 83735; 84484; 85025; 93005; 93017; 96374; 96376; 99285; G0378; J1885